=== PATIENT | male | born 1955 | race Caucasian/White ===

== ENCOUNTER 2022-11-09 07:27 | Day surgery (SDC) | payer OTHER ==
[2022-11-01 10:59] VITALS: BMI 23.5
[2022-11-09] MEDS ORDERED: ONDANSETRON 4 MG/2 ML VIAL IVPUSH PRN (07:41)
[2022-11-09] MEDS ORDERED: ACETAMINOPHEN 1000 MG/100 ML BAG IVPB ONE (07:42)
[2022-11-09] MEDS ORDERED: oxyCODONE HCL 5 MG TABLET PO PRN (07:42)
[2022-11-09] MEDS ORDERED: LACTATED RINGERS SOLUTION 1,000 ML IV SCH ×2 (07:45→12:30)
[2022-11-09] MEDS ORDERED: CELECOXIB 200 MG CAPSULE PO ONE (07:46)
[2022-11-09] MEDS ORDERED: TRANEXAMIC ACID 1000 MG/10 ML VIAL IVPUSH ONE (07:46)
[2022-11-09] MEDS ORDERED: CEFAZOLIN 2 GM in DEXTROSE 5%-WATER - 50 ML IVPB ONE (07:46)
[2022-11-09] MEDS ORDERED: ROPIVACAINE HCL 0.5% 30ML VIAL ONE (07:50)
[2022-11-09] MEDS ORDERED: BUPIVACAINE HCL/PF 0.5% (5MG/ML) 10 ML VIAL ONE (07:50)
[2022-11-09] MEDS ORDERED: DEXAMETHASONE SOD PHOSPHATE/PF 10 MG/ML SDV ONE (07:50)
[2022-11-09] MEDS ORDERED: MIDAZOLAM HCL 2 MG/2 ML SINGLE DOSE VIAL ONE (07:50)
[2022-11-09] MEDS ORDERED: ceFAZolin SODIUM 1 GM VIAL ONE ×2 (08:02→11:02)
[2022-11-09] MEDS ORDERED: VANCOMYCIN 1,000 MG VIAL (RESTRICTED TO ID ONLY) ONE (08:02)
[2022-11-09] MEDS ORDERED: ONDANSETRON 4 MG/2 ML VIAL ONE (11:02)
[2022-11-09] MEDS ORDERED: TRANEXAMIC ACID 1000 MG/10 ML VIAL ONE (11:02)
[2022-11-09] MEDS ORDERED: DEXAMETHASONE SOD PHOSPHATE 4 MG/1 ML VIAL ONE (11:02)
[2022-11-09] MEDS ORDERED: PROPOFOL 40 ML ONE (11:10)
[2022-11-09] MEDS ORDERED: MAG HYDROX/AL HYDROX/SIMETH 30 ML UNIT-DOSE CUP PO PRN (12:18)
[2022-11-09] MEDS ORDERED: ACETAMINOPHEN INJECTION 100 ML IVPB ONE (13:04)
[2022-11-09] MEDS: KETOROLAC TROMETHAMINE 30 MG/1 ML VIAL IVPUSH SCH ×2 (14:12→14:43)
[2022-11-09] MEDS: oxyCODONE HCL 10 MG SUSTAINED ACTING TABLET PO SCH ×2 (14:13→21:32)
[2022-11-09] MEDS: GABAPENTIN 400 MG CAPSULE PO SCH ×2 (14:43→21:33)
[2022-11-09] MEDS: oxyCODONE HCL 5 MG TABLET PO PRN ×3 (16:31→23:00)
[2022-11-09] MEDS ORDERED: ACETAMINOPHEN 500 MG TABLET (FP) PO SCH (18:00)
[2022-11-09] MEDS: CEFAZOLIN SODIUM 2 GM in DEXTROSE 5%-WATER 100 ML IVPB SCH (19:59)
[2022-11-09] MEDS: ACETAMINOPHEN 500 MG TABLET (FP) PO SCH (19:59)
[2022-11-09] MEDS: traZODone HCL 100 MG TABLET (FP) PO SCH (21:32)
[2022-11-09] MEDS: SENNOSIDES/DOCUSATE COMBO (SENNA PLUS) TABLET (UD) PO SCH (21:33)
[2022-11-10] MEDS ORDERED: HYDROmorphone HCl 2 MG/ML VIAL IVPB ONE (00:30)
[2022-11-10] MEDS: ACETAMINOPHEN 500 MG TABLET (FP) PO SCH ×4 (01:38→19:04)
[2022-11-10] MEDS: CEFAZOLIN SODIUM 2 GM in DEXTROSE 5%-WATER 100 ML IVPB SCH (04:15)
[2022-11-10] MEDS: GABAPENTIN 400 MG CAPSULE PO SCH ×3 (05:16→20:59)
[2022-11-10] MEDS: oxyCODONE HCL 5 MG TABLET PO PRN (05:16)
[2022-11-10] MEDS: ASPIRIN 325 MG TABLET PO SCH (08:19)
[2022-11-10 08:53] LABS: HEMATOCRIT 41.1 % (35.4-49); HEMOGLOBIN 13.7 G/dL (11.7-16.9); MCH 31.5 pg (25.7-33.7); MCHC 33.4 g/dl (32.0-35.9); MEAN CELL VOLUME 94.3 fl (80-96); MEAN PLT VOLUME 8.5 fl (7.5-11.1); PLATELET COUNT 188.5 10^3/uL (134-434); RBC 4.36 10^6/uL (4.00-5.60); RDW 13.5 % (11.9-15.9); WHITE BLOOD COUNT 17.2 10^3/uL (4.0-10.8)
[2022-11-10] MEDS: KETOROLAC TROMETHAMINE 30 MG/1 ML VIAL IVPUSH SCH ×3 (09:10→20:56)
[2022-11-10] MEDS: SENNOSIDES/DOCUSATE COMBO (SENNA PLUS) TABLET (UD) PO SCH ×2 (09:11→20:59)
[2022-11-10] MEDS: amLODIPine BESYLATE 2.5 MG TABLET (FP) PO SCH (09:11)
[2022-11-10] MEDS: MULTIVITAMINS (DAILY MVI) TABLET (FP) PO SCH (09:11)
[2022-11-10] MEDS: ONDANSETRON *ODT* 4 MG TABLET SL PRN ×2 (09:11→17:14)
[2022-11-10] MEDS: oxyCODONE HCL 10 MG SUSTAINED ACTING TABLET PO SCH ×2 (09:12→20:59)
[2022-11-10] MEDS: PANTOPRAZOLE 40 MG TABLET PO SCH (09:12)
[2022-11-10] MEDS: LACTATED RINGERS SOLUTION 1,000 ML/1,000 ML INFUS.BAG IV SCH (10:18)
[2022-11-10] MEDS: traZODone HCL 100 MG TABLET (FP) PO SCH (20:59)
[2022-11-11] MEDS: KETOROLAC TROMETHAMINE 30 MG/1 ML VIAL IVPUSH SCH (02:45)
[2022-11-11] MEDS: GABAPENTIN 400 MG CAPSULE PO SCH ×3 (05:45→21:27)
[2022-11-11] MEDS: ACETAMINOPHEN 500 MG TABLET (FP) PO SCH ×4 (05:57→20:00)
[2022-11-11 08:06] LABS: HEMATOCRIT 36.8 % (35.4-49); HEMOGLOBIN 12.3 G/dL (11.7-16.9); MCHC 33.3 g/dl (32.0-35.9); MEAN PLT VOLUME 8.3 fl (7.5-11.1); PLATELET COUNT 134.7 10^3/uL (134-434); RBC 3.83 10^6/uL (4.00-5.60); RDW 14.4 % (11.9-15.9); WHITE BLOOD COUNT 8.8 10^3/uL (4.0-10.8)
[2022-11-11] MEDS: MULTIVITAMINS (DAILY MVI) TABLET (FP) PO SCH (09:32)
[2022-11-11] MEDS: SENNOSIDES/DOCUSATE COMBO (SENNA PLUS) TABLET (UD) PO SCH ×2 (09:32→21:27)
[2022-11-11] MEDS: ASPIRIN 325 MG TABLET PO SCH (09:32)
[2022-11-11] MEDS: PANTOPRAZOLE 40 MG TABLET PO SCH (09:32)
[2022-11-11] MEDS: amLODIPine BESYLATE 2.5 MG TABLET (FP) PO SCH (09:32)
[2022-11-11] MEDS: oxyCODONE HCL 10 MG SUSTAINED ACTING TABLET PO SCH ×2 (09:37→22:53)
[2022-11-11] MEDS: LACTATED RINGERS SOLUTION 1,000 ML/1,000 ML INFUS.BAG IV SCH (12:39)
[2022-11-11] MEDS: traZODone HCL 100 MG TABLET (FP) PO SCH (21:27)
[2022-11-12] MEDS: ACETAMINOPHEN 500 MG TABLET (FP) PO SCH ×2 (06:51→06:53)
[2022-11-12] MEDS: GABAPENTIN 400 MG CAPSULE PO SCH (06:51)
[2022-11-12] MEDS: PANTOPRAZOLE 40 MG TABLET PO SCH (09:20)
[2022-11-12] MEDS: MULTIVITAMINS (DAILY MVI) TABLET (FP) PO SCH (09:20)
[2022-11-12] MEDS: SENNOSIDES/DOCUSATE COMBO (SENNA PLUS) TABLET (UD) PO SCH (09:20)
[2022-11-12] MEDS: ASPIRIN 325 MG TABLET PO SCH (09:20)
[2022-11-12] MEDS: amLODIPine BESYLATE 2.5 MG TABLET (FP) PO SCH (09:20)
[2022-11-12 09:31] VITALS: BP 139/75; PULSE 98; RESP 18
[2022-11-12 10:35] VITALS: TEMP 98.9
== END 2022-11-12 12:35 ==
LOC: FASUSAT 07:27 → FM/S 13:36 → FASUSAT 11-12 12:35
PROVIDERS: ATTEND Orthopaedic Surgery
PROC: 0SR903A Replacement of Right Hip Joint with Ceramic Synthetic Substitute, Uncemented, Open Approach (ICD-10-PCS; principal; 2022-11-09 11:17)
DX: M16.11 Unilateral primary osteoarthritis, right hip (principal)
CPT/HCPCS: 20985; 27130; S2900; 36415; 73502-TC-RT-FY; 85027; 87635; 94760; 97010-GP; 97116-GP; 97161-GP; C1713; C1776; Q0162